=== PATIENT | male | born 1965 | race Caucasian/White ===

== ENCOUNTER 2020-07-26 18:27 | Emergency (ER) | payer MEDICARE, MEDICAID, SELFPAY ==
[2020-07-26 18:31] VITALS: BP 144/88; PULSE 77; RESP 18; TEMP 36.9; O2SAT 100; BMI 42.2
--- NOTE | 2020-07-26 18:42 | CTR_ITS ---
PROCEDURE INFORMATION: Exam: CT Abdomen And Pelvis With Contrast Exam date and time: 07/26/2020 7:22 PM Age: 54 years old Clinical indication: Constipation and nausea; Abdominal pain; Localized; Left lower quadrant (llq); Additional info: Abd pain TECHNIQUE: Imaging protocol: Computed tomography of the abdomen and pelvis with intravenous contrast. Radiation optimization: All CT scans at this facility use at least one of these dose optimization techniques: automated exposure control; mA and/or kV adjustment per patient size (includes targeted exams where dose is matched to clinical indication); or iterative reconstruction. Contrast material: OMNI 300; Contrast volume: 95 ml; Contrast route: INTRAVENOUS (IV); COMPARISON: No relevant prior studies available. RADIATION DOSE METRICS: Total DLP (mGy-cm): 1507.64 FINDINGS: Lungs: There is subpleural atelectasis of the dependent portions of the lungs. Liver: Unremarkable.No mass. Gallbladder and bile ducts: Normal. No calcified stones. No ductal dilation. Pancreas: Normal. No ductal dilation. Spleen: Normal. No splenomegaly. Adrenal glands: Normal. No mass. Kidneys and ureters: There is punctate nephrolithiasis. There is no evidence of hydronephrosis. Stomach and bowel: There is moderately excessive colonic stool content. There is no evidence of intestinal perforation or obstruction. There is no evidence of colitis/diverticulitis. Appendix: A normal appendix is identified. Intraperitoneal space: Unremarkable. No free air. No significant fluid collection. Vasculature: There are numerous benign phleboliths in the pelvis. The aorta demonstrates mild atherosclerotic calcification. Lymph nodes: Unremarkable.No enlarged lymph nodes. Urinary bladder: There is nonspecific bladder wall thickening. This may be related to incomplete distention. There is prominent bladder wall thickening some of which is probable lack of distention but there is a focal area of thickening of the anterior fundus of the bladder that may reflect lack of distention or incidental bladder neoplasm. Reproductive: The prostate demonstrates mild nonspecific enlargement. The seminal vesicles are normal. Bones/joints: Unremarkable. No acute fracture. Soft tissues: There are tiny bilateral fat filled inguinal hernias. CT/CT abdomen pelvis w con* [id number] IMPRESSION: 1. Constipation. No bowel thickening or inflammatory changes. 2. There is prominent bladder wall thickening some of which is probable lack of distention but there is a focal area of thickening of the anterior fundus of the bladder that may reflect lack of distention or incidental bladder neoplasm. Radiation Dose CTDIVOL = (mGy): DLP = 1507.64 (mGy-cm)
--- NOTE | 2020-07-26 18:45 | W.ED.ABDPA2 ---
HPI - Abdominal Pain General: Chief Complaint: Abdominal Pain Stated Complaint: left sided abd pain Time Seen by Provider: 07/26/20 18:35 Source: patient Mode of arrival: ambulatory Limitations: no limitations History of Present Illness: HPI narrative: 54-year-old male states has been having epigastric and left upper quadrant abdominal pain over the last 2 days. He states is been worsening today and is sharp in nature and rates it a 9 out of 10. Denies any vomiting. Denies any diarrhea. Denies any fevers. MD elicited complaint: abdominal pain Pertinent past history: gastritis Onset (ago): hour(s) Pain Consistency: constant Severity: severe Quality: stabbing Radiation: none Migration to: no migration Associated Symptoms: Denies chills, dysuria and fever(s) Review of Systems Const: Denies: fever(s), chills, body aches or change in appetite Eyes: Denies: blurry vision or eye discomfort ENMT: Denies: throat pain or dental pain Card: Denies: chest pain Resp: Denies: dyspnea GI: Reports: abdominal pain : Denies: dysuria Musc: Denies: neck pain or back pain Skin/Breast: Denies: rash Neuro: Denies: headache(s) Psych: Denies: depression Will/Lymph: Denies: easy bruising All/Imm: Denies: urticaria Physical Exam Const: COMMON NORMALS: no acute distress, patient oriented x3 and healthy appearing HENMT: COMMON NORMALS: normocephalic and atraumatic HEAD & SCALP: normocephalic and atraumatic Eye: COMMON NORMALS: Equal, round and reactive pupils present and EOMs intact bilaterally PUPIL: Yes Equal, round and reactive pupils present Neck/C-Spine: COMMON NORMALS: full ROM and supple Chest: COMMONS NORMALS: normal inspection of the chest and normal palpation of entire chest wall Resp: COMMON NORMALS: normal respiratory effort, No retractions, No use of accessory muscles and clear to auscultation bilaterally AUSCULTATION: clear to auscultation bilaterally Cardio: COMMON NORMALS: regular rate, regular rhythm and No murmurs present (Cardio) RATE: regular rate RHYTHM: regular rhythm GI: COMMON NORMALS: Normal to inspection, nondistended, normoactive bowel sounds present, Soft to palpation and no masses PALPATION: Yes Soft to palpation and Yes Tenderness to palpation present (GI) Details: LUQ Extremity: COMMON NORMALS: normal to inspection and full ROM Neuro: COMMON NORMALS: patient oriented x3, moves all extremities and no focal motor deficits Psych: COMMON NORMALS: mental status grossly normal, Normal thought process present and cooperative THOUGHT PROCESS: Normal thought process present Skin: COMMON NORMALS: no rashes or lesions noted and no wounds GENERAL SKIN EXAM: no rashes or lesions noted Course Vital Signs: Vital signs: Vital Signs Temperature 98.4 F 07/26/20 18:31 Pulse Rate 72 07/26/20 19:36 Respiratory Rate 18 07/26/20 19:36 Blood Pressure 142/105 07/26/20 19:36 Pulse Oximetry 93 07/26/20 19:36 MDM - Abdominal Pain MDM Narrative: Medical decision making narrative: Mario presents with abdominal pain. I did discuss findings with his bladder and he sees a urologist in [place] he is to follow-up as soon as possible. Other findings are normal. He is stable for discharge and is to follow-up PCP and return if worsening. He understands agrees to plan. Lab Data: Labs: Lab Results 07/26/20 07/26/20 Range/Units 19:12 19:12 WBC 9.6 (4.0-10.0) 10^3/ uL RBC 5.19 (4.1-5.3) 10^6/u L Hgb 15.7 (11.7-16.6) g/dL Hct 46.4 (42.0-52.0) % MCV 89.4 (80-94) fL MCH 30.3 (28.0-34.0) pg MCHC 33.8 (30.0-36.0) g/dL RDW 12.7 (12.1-15.1) % Plt Count 183 (130-400) 10^3/c mm MPV 9.4 (7.4-10.4) fL Neut % (Auto) 68.9 % Lymph % (Auto) 12.3 % [place] % (Auto) 17.8 % Eos % (Auto) 0.5 % Baso % (Auto) 0.3 % Neut # (Auto) 6.63 (1.8-7.7) 10^3/u L Lymph # (Auto) 1.2 (0.8-4.8) 10^3/u L [place] # (Auto) 1.7 H (0.2-0.9) 10^3/u L Eos # (Auto) 0.1 (0.0-0.8) 10^3/u L Baso # (Auto) 0.0 (0.0-0.1) 10^3/u L Nucleated RBC % (a uto) 0 % Nucleated RBCs # 0.0 /100WBC Sodium 138 (136-145) mmol/L Potassium 3.7 (3.5-5.1) mmol/L Chloride 101 (98-107) mmol/L Carbon Dioxide 29 (22-29) mmol/L Anion Gap 11.7 (5-19) BUN 15 (6-20) mg/dL Creatinine 0.9 (0.7-1.2) mg/dL GFR Calculation 88.3 L (90-130) mL/min Glucose 148 H (65-115) mg/dL Calculated Osmolal ity 290 (285-295) mOsm/k g Calcium 9.5 (8.5-10.5) mg/dL Total Bilirubin 0.7 (0.15-1.2) mg/dL AST 18 (0-40) U/L ALT 21 (0-41) U/L Alkaline Phosphata se 97 (40-130) IU/L Total Protein 8.0 (6.6-8.7) g/dL Albumin 3.8 (3.5-5.2) g/dL Globulin 4.2 (1.3-4.6) g/dL Lipase 25 (13-60) U/L Imaging Data ^: CT Abd/Pel: Radiologist's impression: [address] [address] [address] Scan Report Signed Patient: Mario Krishna Unit #: [id number] : 1965 Age/Sex: 54 / M ADM Date: 07/26/20 Loc: ER Room/Bed: Attending Dr: Ordering Provider/Ordering MD: Javier Ohara MD Date of Service: 07/26/20 Procedure(s): CT abdomen pelvis w con* [id number] Accession Number(s): [id number] Report Number: [id number] PROCEDURE INFORMATION: Exam: CT Abdomen And Pelvis With Contrast Exam date and time: 07/26/2020 7:22 PM Age: 54 years old Clinical indication: Constipation and nausea; Abdominal pain; Localized; Left lower quadrant (llq); Additional info: Abd pain TECHNIQUE: Imaging protocol: Computed tomography of the abdomen and pelvis with intravenous contrast. Radiation optimization: All CT scans at this facility use at least one of these dose optimization techniques: automated exposure control; mA and/or kV adjustment per patient size (includes targeted exams where dose is matched to clinical indication); or iterative reconstruction. Contrast material: OMNI 300; Contrast volume: 95 ml; Contrast route: INTRAVENOUS (IV); COMPARISON: No relevant prior studies available. RADIATION DOSE METRICS: Total DLP (mGy-cm): 1507.64 FINDINGS: Lungs: There is subpleural atelectasis of the dependent portions of the lungs. Liver: Unremarkable.No mass. Gallbladder and bile ducts: Normal. No calcified stones. No ductal dilation. Pancreas: Normal. No ductal dilation. Spleen: Normal. No splenomegaly. Adrenal glands: Normal. No mass. Kidneys and ureters: There is punctate nephrolithiasis. There is no evidence of hydronephrosis. Stomach and bowel: There is moderately excessive colonic stool content. There is no evidence of intestinal perforation or obstruction. There is no evidence of colitis/diverticulitis. Appendix: A normal appendix is identified. Intraperitoneal space: Unremarkable. No free air. No significant fluid collection. Vasculature: There are numerous benign phleboliths in the pelvis. The aorta demonstrates mild atherosclerotic calcification. Lymph nodes: Unremarkable.No enlarged lymph nodes. Urinary bladder: There is nonspecific bladder wall thickening. This may be related to incomplete distention. There is prominent bladder wall thickening some of which is probable lack of distention but there is a focal area of thickening of the anterior fundus of the bladder that may reflect lack of distention or incidental bladder neoplasm. Reproductive: The prostate demonstrates mild nonspecific enlargement. The seminal vesicles are normal. Bones/joints: Unremarkable. No acute fracture. Soft tissues: There are tiny bilateral fat filled inguinal hernias. CT/CT abdomen pelvis w con* [id number] IMPRESSION: 1. Constipation. No bowel thickening or inflammatory changes. 2. There is prominent bladder wall thickening some of which is probable lack of distention but there is a focal area of thickening of the anterior fundus of the bladder that may reflect lack of distention or incidental bladder neoplasm. Discharge Plan Discharge Patient Disposition: Home Clinical Impression: Abdominal pain Qualifiers: Abdominal location: generalized Qualified Code(s): R10.84 - Generalized abdominal pain Condition: Stable Prescriptions: New ondansetron 4 mg tablet,disintegrating 4 mg PO Q6H PRN (Reason: nausea and vomiting) Qty: 14 RF: 0 dicyclomine 20 mg tablet 20 mg PO TID PRN (Reason: abdominal pain) Qty: 20 RF: 0 Discharge Orders: Discharge ED (Routine); Ordered 07/26/20 Ordered By: Javier Ohara Referrals: Joe Gregory MD [Primary Care Provider] - 1-3 days Discharge Diet: Advance as tolerated Discharge Activity: Resume usual activity Patient Instructions: Abdominal Pain (ED) Coding Level of Care Code ED [employer] Operator for Chg Fwd Exam Comprehensive
[2020-07-26 19:19] LABS: Basophils % 0.3 %; Eosinophils # 0.1 10^3/uL (0.0-0.8); Eosinophils % 0.5 %; Hematocrit 46.4 % (42.0-52.0); Hemoglobin 15.7 g/dL (11.7-16.6); Lymphocytes # 1.2 10^3/uL (0.8-4.8); Lymphocytes % 12.3 %; Mean Corpuscular HGB Conc 33.8 g/dL (30.0-36.0); Mean Corpuscular Hemoglobin 30.3 pg (28.0-34.0); Mean Corpuscular Volume 89.4 fL (80-94); Mean Platelet Volume 9.4 fL (7.4-10.4); Monocytes # 1.7 10^3/uL (0.2-0.9); Monocytes % 17.8 %; Neutrophils # 6.63 10^3/uL (1.8-7.7); Neutrophils % 68.9 %; Nucleated Red Blood Cells % 0 %; Platelet Count 183 10^3/cmm (130-400); Red Blood Count 5.19 10^6/uL (4.1-5.3); Red Cell Distribution Width 12.7 % (12.1-15.1); White Blood Count 9.6 10^3/uL (4.0-10.0)
[2020-07-26] MEDS: iohexol 300 mg/mL 100 mL Btl IV (19:23)
[2020-07-26] MEDS: sodium chloride 0.9% 1,000 ML 999 ML IV (19:31)
[2020-07-26 19:33] VITALS: RESP 18; O2SAT 97
[2020-07-26] MEDS: ondansetron 2 mg/ML SDV 2 mL 4 MG IVP (19:33)
[2020-07-26] MEDS: morphine 4 mg/mL SDV 1 mL IVP (19:33)
[2020-07-26 19:36] VITALS: BP 142/105; PULSE 72; RESP 18; O2SAT 93
[2020-07-26 19:57] LABS: Alanine Aminotransferase 21 U/L (0-41); Albumin Level 3.8 g/dL (3.5-5.2); Alkaline Phosphatase 97 IU/L (40-130); Anion Gap 11.7 (5-19); Aspartate Amino Transferase 18 U/L (0-40); Blood Urea Nitrogen 15 mg/dL (6-20); Calcium 9.5 mg/dL (8.5-10.5); Carbon Dioxide 29 mmol/L (22-29); Chloride 101 mmol/L (98-107); Globulin 4.2 g/dL (1.3-4.6); Glomerular Filtration Rate 88.3 mL/min (90-130); Glucose 148 mg/dL (65-115); Lipase 25 U/L (13-60); Osmolality Calculated 290 mOsm/kg (285-295); Potassium 3.7 mmol/L (3.5-5.1); Sodium 138 mmol/L (136-145); Total Bilirubin 0.7 mg/dL (0.15-1.2)
[2020-07-26 20:24] VITALS: BP 143/90; PULSE 97; RESP 18; O2SAT 97
== END 2020-07-26 20:26 | disposition home or self-care (01) ==
PROVIDERS: Emergency Provider Emergency Medicine; PCP Family Medicine
DX: R10.84 Generalized abdominal pain (principal)
CPT/HCPCS: 12345; 74177; 80053; 83690; 85025; 96361; 96374; 96375; 99282; 99283; J2270; J2405; J7030; Q9967

== ENCOUNTER 2020-07-30 02:57 | Emergency (ER) | payer MEDICARE, MEDICAID, SELFPAY ==
[2020-07-30 03:04] VITALS: BP 119/75; PULSE 71; RESP 16; TEMP 36.8; O2SAT 95; BMI 30.2
[2020-07-30 03:11] VITALS: BP 130/83; PULSE 88; RESP 16; O2SAT 97
--- NOTE | 2020-07-30 03:20 | US_ITS ---
WS: [id number] Complete ABDOMINAL ULTRASOUND HISTORY: Abdominal Pain COMPARISON: None available. Liver: 16.3 cm in length. Liver is normal size and echogenicity with no mass or intrahepatic dilatati on. Gallbladder: Well distended gallbladder. Numerous stones with shadowing filling nearly 50% of the lum en. Gallbladder wall is slightly thickened. No pericholecystic fluid. Gallbladder wall thickness: 0.3 cm. Pancreas: Completely obscured by bowel gas. CBD: 0.4 cm. Right kidney: 10.8 cm x 5.5 cm x 5.6 cm. No mass, cortical thickening or hydronephrosis. Left kidney: 10.1 cm x 5.9 cm x 5.0 cm. No mass, cortical thickening or hydronephrosis. Spleen: Normal size and echogenicity. Abdominal aorta and IVC are within normal limits. No ascites. US/US abdomen complete* [id number] IMPRESSION: 1. Cholelithiasis without evidence for acute cholecystitis. 2. No bile duct dilatation. 3. Otherwise negative.
--- NOTE | 2020-07-30 03:21 | W.ED.ABDPA2 ---
HPI - Abdominal Pain General: Chief Complaint: Abdominal Pain Stated Complaint: upper abdominal pain Time Seen by Provider: 07/30/20 03:08 Source: patient and family Mode of arrival: ambulatory Limitations: no limitations History of Present Illness: HPI narrative: Mario is a very nice 54-year-old male who comes in with his mother with a complaint of abdominal pain. Patient has a history of traumatic brain injury at age 4 so he gives history but his mother does as well. She states he has been having abdominal pain for the past 6 days that has been intermittent but more present than not. Patient cannot remove the last time he had a solid bowel movement. Patient was seen here as well as urgent care and by Dr. Gregory. All felt that he has been constipated as a CT scan from the visit here showed constipation. He has had 2 doses of milk of magnesia and 2 bottles of magnesium citrate along with an enema but his mother states he is now passing liquid yellow stools but no solid bowel movements. Patient has had no fever. He has had no nausea or vomiting. He denies any chest pain, shortness of breath, and he denies urinary symptoms such as dysuria or frequency/urgency. He is unaware of anything that makes his symptoms better or worse. He does have a decreased appetite. They deny any previous abdominal surgeries. His mother is specifically wondering tonight if this could be his gallbladder. I also asked if he has anything for acid on his stomach and his mother states that he has been taking something for his stomach acid for for 5 years. Associated Symptoms: Reports diarrhea; Denies chills, coffee ground emesis, constipation, GI cramping, dysuria, fever(s), heartburn, hematochezia, hematuria, hematemesis, melena, nausea, syncope and vomiting Review of Systems Const: Denies: fever(s), chills, body aches, fatigue, malaise or diaphoresis Eyes: Denies: change in vision, blurry vision, photophobia, eye discomfort, eye discharge, eye redness or yellow eyes ENMT: Denies: throat pain, odynophagia, hoarseness, swelling of lips/tongue, ear or mastoid pain, ear discharge, change in hearing or nasal discharge Card: Denies: chest pain, palpitations, irregular heart rhythm, edema, lightheadedness, syncope, pre-syncope, dyspnea on exertion or orthopnea Resp: Denies: dyspnea, productive cough, non-productive cough, wheezing, hemoptysis or chest congestion GI: Reports: abdominal pain and diarrhea; Denies: nausea, vomiting, hematemesis, coffee ground emesis, heartburn, constipation, GI cramping, hematochezia or melena : Denies: flank pain, dysuria, urinary frequency, urinary urgency or hematuria Musc: Denies: neck pain, back pain, extremity pain, extremity swelling, joint pain, joint swelling, joint redness, joint warmth or joint stiffness Skin/Breast: Denies: rash, pruritus, erythema, skin pain or skin tenderness Neuro: Denies: headache(s), numbness in extremities, weakness in extremities, sensory changes, lack of coordination, difficulty walking, dizziness, vertigo, confusion, Slurred speech present or seizure-like activity Will/Lymph: Denies: easy bruising, easy bleeding, petechiae, purpura or enlarged lymph nodes All/Imm: Denies: urticaria, throat swelling, tongue swelling, facial swelling or acute wheezing PFSH ED PFSH: Medical History DM type 2 (diabetes mellitus, type 2) GERD (gastroesophageal reflux disease) TBI (traumatic brain injury) Physical Exam Const: COMMON NORMALS: no acute distress, patient oriented x3, no limitations and alert GENERAL APPEARANCE: cooperative HENMT: COMMON NORMALS: normocephalic, atraumatic, external ears normal, EAC's normal and Normal external nose present HEAD & SCALP: normal to inspection, normocephalic and atraumatic FACE & SINUS: normal facial exam and face symmetric NOSE: Normal external nose present and Normal nares present EXTERNAL EAR: Yes external ears normal EXTERNAL AUDITORY CANAL: EAC's normal MOUTH: Normal oral and palatal mucosa present, lip normal and tongue normal Eye: COMMON NORMALS: Equal, round and reactive pupils present and conjunctivae normal GENERAL EYE: appearance normal, both eyes and all related structures ALIGNMENT: Yes alignment normal PERIORBITAL: periorbital findings normal EYELID: eyelids normal CONJUNCTIVA: Yes conjunctivae normal SCLERA: sclerae normal PUPIL: Yes Equal, round and reactive pupils present Neck/C-Spine: COMMON NORMALS: full ROM, no lymphadenopathy, supple, no meningeal signs and no JVD GENERAL: Yes normal visual inspection and Yes trachea midline Chest: COMMONS NORMALS: normal inspection of the chest and normal palpation of entire chest wall Resp: COMMON NORMALS: normal respiratory effort, No retractions, No use of accessory muscles and clear to auscultation bilaterally EFFORT & INSPECTION: Yes able to speak in complete sentences and Yes symmetric chest movement AUSCULTATION: clear to auscultation bilaterally, no crackles, no rales, no rhonchi and no wheezes Cardio: COMMON NORMALS: no JVD, regular rate, regular rhythm, S1 normal heart sound present and S2 normal heart sound present RATE: regular rate RHYTHM: regular rhythm HEART SOUNDS: S1 normal heart sound present, S2 normal heart sound present, no click, no gallops, no murmurs and no rubs GI: COMMON NORMALS: Soft to palpation and No hepatosplenomegaly present PALPATION: Yes Soft to palpation, Yes Tenderness to palpation present (GI) (Mild diffusely but greatest area of pain is left upper quadrant), No Guarding due to palpation present (GI), No Rigid due to palpation, Yes No hepatosplenomegaly present, No Hernia present, No Palpable mass present and No Pulsatile mass present : COMMON NORMALS: Yes no CVA tenderness BLADDER/KIDNEY EXAM: Yes no CVA tenderness Back/Pelvis: COMMON NORMALS: no CVA tenderness, thoracic and lumbar spine normal to inspection, no thoracic nor lumbar tenderness and thoraco-lumbar ROM normal Extremity: COMMON NORMALS: normal to inspection, full ROM, capillary refill normal, no joint enlargement, no clubbing, cyanosis or edema and no calf tenderness Neuro: COMMON NORMALS: patient oriented x3, CN's II-XII intact bilaterally, moves all extremities, no focal motor deficits and no sensory deficits noted SENSORIUM/ORIENTATION: Yes alert MENINGEAL SIGNS: Yes no meningeal signs SPEECH: speech normal Psych: COMMON NORMALS: mental status grossly normal, Normal thought process present, cooperative, normal affect, speech normal and activity/motor behavior normal SPEECH: Yes normal speech THOUGHT PROCESS: Normal thought process present Skin: COMMON NORMALS: no rashes or lesions noted, turgor normal, no jaundice, no petechiae and no mottling GENERAL SKIN EXAM: no rashes or lesions noted and turgor normal Course Vital Signs: Vital signs: Vital Signs Temperature 98.3 F 07/30/20 03:04 Pulse Rate 70 07/30/20 04:11 Respiratory Rate 16 07/30/20 04:11 Blood Pressure 130/83 07/30/20 03:41 Pulse Oximetry 94 07/30/20 04:11 MDM - Abdominal Pain MDM Narrative: Medical decision making narrative: [id number] Patricia is a very nice 54-year-old male who comes in with a complaint of 6 days of left upper quadrant abdominal pain. He has been evaluated here initially followed by an urgent care visit and a visit with Dr. Gregory his primary care physician. No definitive cause can be found. His mother brought him in [facility] concerned primarily about his gallbladder. The patient has pain that is mild diffusely on his exam but greatest in the left upper quadrant. The patient's mother was insistent so I went ahead and got an ultrasound which revealed gallstones but no secondary signs of biliary colic, disease or infection. The patient's abdomen was very soft and I can only elicit tenderness with significant palpation deeply in the abdomen and again this was mostly in the left upper quadrant. Peptic ulcer disease and gastritis are a possibility and I did teach him for H. pylori antibodies but they were negative. The patient already takes something for his acid but they could not remember the name of it. As far as his abdominal pain goes I have referred him to Dr. Mackenzie for possible outpatient EGD or further work-up. The patient sees a urologist in [place] but I have referred him to Dr. aPtrick where they can go back to their regular urologist for the patient's bladder thickening and UTI. They are aware that the thickening could be a sign of cancer and they will need further evaluation for this. The patient's pleural effusion is new but there is no sign of acute lung disease. I have referred him back to Dr. Gregory for this and they do understand that he needs to be looking at all the things that are going on to see if there is a connection between them. At this time I do not see any acute life-threatening illnesses and the patient has a nonsurgical exam to his abdomen. He and his mother understand that this could be the beginning of something serious and they may need to return that at this time they agree with ongoing outpatient work-up. Differential Diagnosis: Differential diagnosis abdominal pain: Likely abdominal pain, acute appendicitis, calculus of kidney, constipation, diverticulitis, gastroenteritis, pancreatitis and small bowel obstruction Medical Records: Attestation: I reviewed the patient's medical records. Lab Data: Attestation: I reviewed the patient's lab results. Labs: Lab Results 07/30/20 07/30/20 07/30/20 Range/Units 03:26 03:26 03:26 WBC 11.5 H (4.0-10.0) 10^3/ uL RBC 4.22 (4.1-5.3) 10^6/u L Hgb 12.7 (11.7-16.6) g/dL Hct 38.0 L (42.0-52.0) % MCV 90.0 (80-94) fL MCH 30.1 (28.0-34.0) pg MCHC 33.4 (30.0-36.0) g/dL RDW 12.6 (12.1-15.1) % Plt Count 219 (130-400) 10^3/c mm MPV 9.3 (7.4-10.4) fL Neut % (Auto) 81.4 % Lymph % (Auto) 7.2 % Cedar % (Auto) 10.4 % Eos % (Auto) 0.3 % Baso % (Auto) 0.3 % Neut # (Auto) 9.34 H (1.8-7.7) 10^3/u L Lymph # (Auto) 0.8 (0.8-4.8) 10^3/u L Cedar # (Auto) 1.2 H (0.2-0.9) 10^3/u L Eos # (Auto) 0.0 (0.0-0.8) 10^3/u L Baso # (Auto) 0.0 (0.0-0.1) 10^3/u L Nucleated RBC % (a uto) 0 % Nucleated RBCs # 0.0 /100WBC Sodium 136 (136-145) mmol/L Potassium 3.7 (3.5-5.1) mmol/L Chloride 97 L (98-107) mmol/L Carbon Dioxide 28 (22-29) mmol/L Anion Gap 14.7 (5-19) BUN 17 (6-20) mg/dL Creatinine 0.9 (0.7-1.2) mg/dL GFR Calculation 88.3 L (90-130) mL/min Glucose 155 H (65-115) mg/dL Calculated Osmolal ity 287 (285-295) mOsm/k g Calcium 9.1 (8.5-10.5) mg/dL Total Bilirubin 0.7 (0.15-1.2) mg/dL AST 21 (0-40) U/L ALT 19 (0-41) U/L Alkaline Phosphata se 100 (40-130) IU/L Total Protein 6.9 (6.6-8.7) g/dL Albumin 2.9 L (3.5-5.2) g/dL Globulin 4.0 (1.3-4.6) g/dL Lipase 27 (13-60) U/L Urine Color (Yellow) Urine Appearance (CLEAR) Urine pH (5-7) Ur Specific Gravit y (1.005-1.030) Urine Protein (Negative) Urine Glucose (UA) (Normal) Urine Ketones (Negative) Urine Blood (Negative) Urine Nitrate (Negative) Urine Bilirubin (Negative) Urine Urobilinogen (Negative) mg/dL Ur Leukocyte Cris ase (Negative) Urine RBC (0-2) /hpf Urine WBC (0-5) /hpf Ur Squamous Epith Cells (0-5) /hpf Amorphous Sediment Urine Bacteria (NONE) /hpf H. pylori IgG Anti body Negative (Negative) 07/30/20 Range/Units 03:41 WBC (4.0-10.0) 10^3/ uL RBC (4.1-5.3) 10^6/u L Hgb (11.7-16.6) g/dL Hct (42.0-52.0) % MCV (80-94) fL MCH (28.0-34.0) pg MCHC (30.0-36.0) g/dL RDW (12.1-15.1) % Plt Count (130-400) 10^3/c mm MPV (7.4-10.4) fL Neut % (Auto) % Lymph % (Auto) % Cedar % (Auto) % Eos % (Auto) % Baso % (Auto) % Neut # (Auto) (1.8-7.7) 10^3/u L Lymph # (Auto) (0.8-4.8) 10^3/u L Cedar # (Auto) (0.2-0.9) 10^3/u L Eos # (Auto) (0.0-0.8) 10^3/u L Baso # (Auto) (0.0-0.1) 10^3/u L Nucleated RBC % (a uto) % Nucleated RBCs # /100WBC Sodium (136-145) mmol/L Potassium (3.5-5.1) mmol/L Chloride (98-107) mmol/L Carbon Dioxide (22-29) mmol/L Anion Gap (5-19) BUN (6-20) mg/dL Creatinine (0.7-1.2) mg/dL GFR Calculation (90-130) mL/min Glucose (65-115) mg/dL Calculated Osmolal ity (285-295) mOsm/k g Calcium (8.5-10.5) mg/dL Total Bilirubin (0.15-1.2) mg/dL AST (0-40) U/L ALT (0-41) U/L Alkaline Phosphata se (40-130) IU/L Total Protein (6.6-8.7) g/dL Albumin (3.5-5.2) g/dL Globulin (1.3-4.6) g/dL Lipase (13-60) U/L Urine Color Yellow (Yellow) Urine Appearance Sl hazy (CLEAR) Urine pH 5 (5-7) Ur Specific Gravit y 1.010 (1.005-1.030) Urine Protein Trace (Negative) Urine Glucose (UA) 4+ H (Normal) Urine Ketones 2+ H (Negative) Urine Blood 2+ H (Negative) Urine Nitrate Negative (Negative) Urine Bilirubin Neg (Negative) Urine Urobilinogen Norm (Negative) mg/dL Ur Leukocyte Cris ase Negative (Negative) Urine RBC 0-4 H (0-2) /hpf Urine WBC 40-55 H (0-5) /hpf Ur Squamous Epith Cells 5-10 H (0-5) /hpf Amorphous Sediment Not Reportable Urine Bacteria 1+ H (NONE) /hpf H. pylori IgG Anti body (Negative) Imaging Data ^: CT Abd/Pel: Radiologist's impression: [address] [address] [address] Scan Report Signed Patient: Mario KrishnaSimona #: [id number] : 1965Acct#:[id number] Age/Sex: 54 / MADM Date: 07/30/20 Loc: ERRoom/Bed: Attending Dr: Ordering Provider/Ordering MD: Nathaly Santamaria DO Date of Service: 07/30/20 Procedure(s): CT abdomen pelvis w con* [id number] Accession Number(s): [id number] Report Number: [id number] PROCEDURE INFORMATION: Exam: CT Abdomen And Pelvis With Contrast Exam date and time: 07/30/2020 4:14 AM Age: 54 years old Clinical indication: Abdominal pain; Patient HX: Epigastric pain TECHNIQUE: Imaging protocol: Computed tomography of the abdomen and pelvis with intravenous contrast. Radiation optimization: All CT scans at this facility use at least one of these dose optimization techniques: automated exposure control; mA and/or kV adjustment per patient size (includes targeted exams where dose is matched to clinical indication); or iterative reconstruction. Contrast material: OMNI 300; Contrast volume: 95 ml; Contrast route: INTRAVENOUS (IV); COMPARISON: CT abdomen pelvis w con* [id number] 07/26/2020 7:12 PM RADIATION DOSE METRICS: Total DLP (mGy-cm): 1593.71 FINDINGS: Lungs: Interval appearance of the mild atelectasis in the left lower lobe. Pleural space: Interval appearance of the small left pleural effusion. Liver: Still no apparent liver disease. Gallbladder and bile ducts: Slightly heterogeneous density in the gallbladder, especially posteriorly. No calcified gallstones or biliary ductal dilatation. Pancreas: Continued slight fatty infiltration of the pancreas. Still no ductal dilatation. Spleen: Still no splenomegaly. Adrenal glands: Still no adrenal mass. Kidneys and ureters: Minimal right hydronephrosis again evident. Still no definite left hydronephrosis. Still no ureteral stone. 7-8 mm focus of decreased density still present in the left lower renal cortex. Stomach and bowel: Continued elongation of the sigmoid colon into the mid abdomen. Still no obstruction. Appendix: Still no appendicitis. Intraperitoneal space: Still no free air. Vasculature: Continued atherosclerosis. Still no aortic aneurysm. Lymph nodes: No interval enlarged nodes. Urinary bladder: Bladder wall thickening still not excluded due to its lack of distension. Reproductive: Continued slight prostatic prominence. Bones/joints: Bilateral L5 spondylolysis again evident. Continued only minimal spondylolisthesis at L5-S1. Old compression fractures again evident. Continued slight degeneration of the L3-L4 and L4-L5 discs. Soft tissues: Minimal body wall edema again evident. CT/CT abdomen pelvis w con* [id number] IMPRESSION: 1. Interval appearance of the left pleural effusion and left lower lobe atelectasis. 2. No acute abdominal findings. Bladder wall thickening still not excluded due to its lack of distension. Stable minimal right hydronephrosis. 3. Noncalcified gallstones still conceivable. 4. Bilateral L5 spondylolysis again evident. Other findings detailed above. COMMENTS: Consistent with the [employer]'s Incidental Findings Committee white paper (J Am Dain Radiol 2018): Any incidental renal lesion less than 1 cm or classified as too small to characterize, or any incidental cystic renal lesion characterized as simple-appearing, is likely benign. No follow-up imaging is recommended for these lesions per consensus recommendations based on imaging criteria. Radiation Dose CTDIVOL = (mGy): DLP = 1593.71 (mGy-cm) Dictated By:Ashley Pope MD Signed By:Ashley Popeigned Date/Time:07/30/20512 DD/ 2 US: My impression: Ultrasound abdomen, tech interpretation -gallbladder with multiple stones present but normal common bile ducts, no wall thickening, no pericholecystic fluid. Negative sonographic Ingram sign. All other findings unremarkable. Discharge Plan Discharge Patient Disposition: Home Clinical Impression: Acute UTI Abdominal pain Qualifiers: Abdominal location: left upper quadrant Qualified Code(s): R10.12 - Left upper quadrant pain Condition: Stable Prescriptions: New cefdinir 300 mg capsule 300 mg PO Q12H 10 Days Qty: 20 RF: 0 No Action ondansetron 4 mg tablet,disintegrating 4 mg PO Q6H PRN (Reason: nausea and vomiting) Qty: 14 RF: 0 dicyclomine 20 mg tablet 20 mg PO TID PRN (Reason: abdominal pain) Qty: 20 RF: 0 Discharge Orders: Discharge ED (Routine); Ordered 07/30/20 Ordered By: Nathaly Santamaria Referrals: Mazin Mackenzie MD [Physician] - 1-3 days Jose Patrick MD [Physician] - 1-3 days Joe Gregory MD [Primary Care Provider] - 1-3 days Discharge Diet: Advance as tolerated Discharge Activity: Increase activity as tolerated Patient Instructions: Urinary Tract Infection in Men (ED), Pleural Effusion (ED), Abdominal Pain (ED) Activity Restrictions/Additional Instructions: Please return to the ER immediately for any of the signs or symptoms listed on your discharge instruction sheets, worsening/changing of your symptoms, you are not getting better as quickly as expected, or for ANY other cause or concerns. Be certain to follow-up with Dr. Gregory so he can coordinate the evaluation of your pleural effusion as well as your abdominal pain. Follow-up with Dr. Mackenzie or the surgeon of your choice for possible scoping of your stomach and further evaluation of your abdominal pain. Schedule an appointment with your urologist or with Dr. Patrick for further evaluation of your bladder wall thickening. Take the dicyclomine and Zofran you have been previously prescribed for nausea and abdominal discomfort and be certain to take the antibiotic I have prescribed for your urinary tract infection. A definitive cause for tonight's findings has not been definitively found so it is imperative you follow-up with your primary care physician and the specialist I discussed with you for further evaluation and care. Coding Level of Care Code ED Portfolio Accountant for Chg Fwd Exam Comprehensive
[2020-07-30 03:35] LABS: Basophils % 0.3 %; Eosinophils % 0.3 %; Hemoglobin 12.7 g/dL (11.7-16.6); Lymphocytes # 0.8 10^3/uL (0.8-4.8); Lymphocytes % 7.2 %; Mean Corpuscular HGB Conc 33.4 g/dL (30.0-36.0); Mean Corpuscular Hemoglobin 30.1 pg (28.0-34.0); Mean Platelet Volume 9.3 fL (7.4-10.4); Monocytes # 1.2 10^3/uL (0.2-0.9); Monocytes % 10.4 %; Neutrophils # 9.34 10^3/uL (1.8-7.7); Neutrophils % 81.4 %; Nucleated Red Blood Cells % 0 %; Platelet Count 219 10^3/cmm (130-400); Red Blood Count 4.22 10^6/uL (4.1-5.3); Red Cell Distribution Width 12.6 % (12.1-15.1); White Blood Count 11.5 10^3/uL (4.0-10.0)
[2020-07-30] MEDS: ondansetron 2 mg/ML SDV 2 mL 4 MG IVP (03:39)
[2020-07-30 03:41] VITALS: BP 130/83; PULSE 69; RESP 16; O2SAT 93; O2SAT 97
[2020-07-30] MEDS: morphine 4 mg/mL SDV 1 mL IVP ×2 (03:41→05:44)
[2020-07-30] MEDS: sodium chloride 0.9% 1,000 ML 999 ML IV (03:42)
[2020-07-30 03:55] LABS: Alanine Aminotransferase 19 U/L (0-41); Albumin Level 2.9 g/dL (3.5-5.2); Alkaline Phosphatase 100 IU/L (40-130); Anion Gap 14.7 (5-19); Aspartate Amino Transferase 21 U/L (0-40); Blood Urea Nitrogen 17 mg/dL (6-20); Calcium 9.1 mg/dL (8.5-10.5); Carbon Dioxide 28 mmol/L (22-29); Chloride 97 mmol/L (98-107); Glomerular Filtration Rate 88.3 mL/min (90-130); Glucose 155 mg/dL (65-115); Lipase 27 U/L (13-60); Osmolality Calculated 287 mOsm/kg (285-295); Potassium 3.7 mmol/L (3.5-5.1); Sodium 136 mmol/L (136-145); Total Bilirubin 0.7 mg/dL (0.15-1.2); Total Protein 6.9 g/dL (6.6-8.7)
[2020-07-30 04:02] LABS: H. Pylori IgG Antibody Negative (Negative)
[2020-07-30 04:11] VITALS: PULSE 70; RESP 16; O2SAT 94
--- NOTE | 2020-07-30 04:13 | CTR_ITS ---
PROCEDURE INFORMATION: Exam: CT Abdomen And Pelvis With Contrast Exam date and time: 07/30/2020 4:14 AM Age: 54 years old Clinical indication: Abdominal pain; Patient HX: Epigastric pain TECHNIQUE: Imaging protocol: Computed tomography of the abdomen and pelvis with intravenous contrast. Radiation optimization: All CT scans at this facility use at least one of these dose optimization techniques: automated exposure control; mA and/or kV adjustment per patient size (includes targeted exams where dose is matched to clinical indication); or iterative reconstruction. Contrast material: OMNI 300; Contrast volume: 95 ml; Contrast route: INTRAVENOUS (IV); COMPARISON: CT abdomen pelvis w con* [id number] 07/26/2020 7:12 PM RADIATION DOSE METRICS: Total DLP (mGy-cm): 1593.71 FINDINGS: Lungs: Interval appearance of the mild atelectasis in the left lower lobe. Pleural space: Interval appearance of the small left pleural effusion. Liver: Still no apparent liver disease. Gallbladder and bile ducts: Slightly heterogeneous density in the gallbladder, especially posteriorly. No calcified gallstones or biliary ductal dilatation. Pancreas: Continued slight fatty infiltration of the pancreas. Still no ductal dilatation. Spleen: Still no splenomegaly. Adrenal glands: Still no adrenal mass. Kidneys and ureters: Minimal right hydronephrosis again evident. Still no definite left hydronephrosis. Still no ureteral stone. 7-8 mm focus of decreased density still present in the left lower renal cortex. Stomach and bowel: Continued elongation of the sigmoid colon into the mid abdomen. Still no obstruction. Appendix: Still no appendicitis. Intraperitoneal space: Still no free air. Vasculature: Continued atherosclerosis. Still no aortic aneurysm. Lymph nodes: No interval enlarged nodes. Urinary bladder: Bladder wall thickening still not excluded due to its lack of distension. Reproductive: Continued slight prostatic prominence. Bones/joints: Bilateral L5 spondylolysis again evident. Continued only minimal spondylolisthesis at L5-S1. Old compression fractures again evident. Continued slight degeneration of the L3-L4 and L4-L5 discs. Soft tissues: Minimal body wall edema again evident. CT/CT abdomen pelvis w con* [id number] IMPRESSION: 1. Interval appearance of the left pleural effusion and left lower lobe atelectasis. 2. No acute abdominal findings. Bladder wall thickening still not excluded due to its lack of distension. Stable minimal right hydronephrosis. 3. Noncalcified gallstones still conceivable. 4. Bilateral L5 spondylolysis again evident. Other findings detailed above. COMMENTS: Consistent with the [employer]'s Incidental Findings Committee white paper (J Am Dain Radiol 2018): Any incidental renal lesion less than 1 cm or classified as too small to characterize, or any incidental cystic renal lesion characterized as simple-appearing, is likely benign. No follow-up imaging is recommended for these lesions per consensus recommendations based on imaging criteria. Radiation Dose CTDIVOL = (mGy): DLP = 1593.71 (mGy-cm)
[2020-07-30 04:16] LABS: Add Urine Microscopic? YES; Bilirubin Urine Neg (Negative); Blood Urine 2+ (Negative); Glucose Urine UA 4+ (Normal); Ketones Urine 2+ (Negative); Leukocyte Esterase Urine Negative (Negative); Nitrate Urine Negative (Negative); Protein Urine Trace (Negative); Urine Appearance SL Hazy (CLEAR); Urine Color Yellow (Yellow); Urobilinogen Urine Norm (Negative); pH Urine 5 (5-7)
[2020-07-30 04:19] LABS: Bacteria Urine 1+ /hpf; RBC Urine 0-4 /hpf (0-2); WBC Urine 40-55 /hpf (0-5)
[2020-07-30 04:20] LABS: Add Urine Culture? Yes
[2020-07-30] MEDS: iohexol 300 mg/mL 100 mL Btl IV (04:30)
[2020-07-30] MEDS: cefTRIAXone 1,000 MG in sodium chloride 0.9% (plus) 50 ML 100 MG IV (04:50)
[2020-07-30] MEDS: sodium chloride 0.9% 1,000 ML 100 ML IV (04:54)
--- NOTE | 2020-07-30 05:16 | XR_ITS ---
WS: [id number] XR chest 1V portable [id number] REASON FOR EXAM: Pleural effusion FINDINGS: Heart and mediastinum are within normal There is patchy density in the left lung base. The left costophrenic angle is blunted. The right lung is clear. Unremarkable bony thorax. XR/XR chest 1V portable [id number] IMPRESSION: Minimal consolidation left lower lung with left pleural effusion. These finding s are confirmed by the CT scan of the abdomen and pelvis done 07/30/2020.
[2020-07-30 05:44] VITALS: RESP 16; O2SAT 96
[2020-07-30] MEDS: lidocaine 2% viscous 15 ML, aluminum-mag hydrox-simethicon 30 ML, sucralfate oral liq 1 GM PO (05:44)
[2020-07-30 05:45] VITALS: BP 138/64; PULSE 72; RESP 16; O2SAT 96
== END 2020-07-30 05:45 | disposition home or self-care (01) ==
PROVIDERS: Emergency Provider Emergency Medicine; PCP Family Medicine
DX: R10.12 Left upper quadrant pain (principal); E11.9 Type 2 diabetes mellitus without complications
CPT/HCPCS: 12345; 71045; 74177; 76700; 80053; 81001; 83690; 85025; 86677; 87077; 87086; 87186; 96365; 96375; 96376; 99283; 99284; J0696; J2270; J2405; J7030; Q9967